=== PATIENT | female | born 1930 | race Caucasian/White ===

== ENCOUNTER 2016-11-27 21:46 | Emergency (ER) | payer MEDICARE, BC ==
[2016-11-27 20:18] LABS: URINE SOURCE CLEAN CATCH
[2016-11-27 20:25] LABS: BASOPHIL# 0.1 X10e3 (0-0.3); BASOPHIL% 1.2 % (0-2.5); EOSINOPHIL# 0.4 X10e3 (0-0.7); EOSINOPHIL% 3.6 % (0.0-7.0); HEMATOCRIT 36.1 % (35.0-45.0); HEMOGLOBIN 12.1 gm/dL (12.0-16.0); LYMPHOCYTE% 19.4 % (17.0-45.0); MEAN CELL VOLUME 93.3 FL (83-96); MEAN CORPUSCULAR HEMOGLOBIN 31.4 PG (28-34); MEAN CORPUSCULAR HGB CONC 33.7 g/dL (30-36); MEAN PLATELET VOLUME 8.6 FL (6.5-11.5); MONOCYTE# 1.1 X10e3 (0-1.0); MONOCYTE% 10.4 % (3.0-12.0); NEUTROPHIL# 6.7 X10e3 (1.5-7.1); NEUTROPHIL% 65.4 % (40-75); PLATELET COUNT 257 X10e3 (140-420); RED BLOOD COUNT 3.87 X10e (3.90-5.30); RED CELL DISTRIBUTION WIDTH 12.2 % (11.0-15.5); WHITE BLOOD COUNT 10.3 X10e3 (4.0-10.5)
[2016-11-27 20:25] LABS: URINE APPEARANCE CLEAR; URINE BILIRUBIN NEG (NEG); URINE BLOOD NEG (NEG); URINE COLOR YELLOW; URINE GLUCOSE NEG (NEG); URINE KETONE NEG (NEG); URINE LEUKOCYTE ESTERASE TRACE (NEG); URINE NITRATE NEG (NEG); URINE PH 5.5 (5-8); URINE PROTEIN NEG (NEG); URINE SPECIFIC GRAVITY 1.012 (1.003-1.035); URINE UROBILINOGEN 0.2 MG/DL (NEG)
[2016-11-27 20:26] LABS: DIFF IND NO
[2016-11-27 20:29] LABS: URBCS1 AUWI 0-2 /[HPF] (0-2); URINE BACTERIA AUWI NEG (NEGATIVE); URINE SQUAMOUS EPITHELIAL CELL NONE SEEN /[HPF]
[2016-11-27 20:53] LABS: ALBUMIN SERUM 4.2 g/dL (3.5-5.0); ALKALINE PHOSPHATASE 57 U/L (32-92); ALT (SGPT) 11 U/L (10-40); AMYLASE 33 U/L (0-46); AST (SGOT) 17 U/L (10-42); BILIRUBIN, DIRECT 0.1 mg/dL (0.0-0.2); BILIRUBIN,INDIRECT 0.6 mg/dL (0.0-0.9); BILIRUBIN,TOTAL 0.7 mg/dL (0.2-2.0); BLOOD UREA NITROGEN 18 mg/dL (9-23); CALCIUM SERUM 10.1 mg/dL (8.4-10.2); CARBON DIOXIDE 23 mmol/L (22-31); CHLORIDE 103 mmol/L (100-111); CREATININE SERUM 0.9 mg/dL (0.6-1.4); GLOM FILT RATE Estimated ABOVE60 mL/min (>60); GLUCOSE FASTING 121 mg/dL (70-110); LIPASE 30 U/L (22-51); POTASSIUM 4.1 mmol/L (3.5-5.1); PROTEIN TOTAL SERUM 7.8 g/dL (6.0-8.3); SODIUM 136 mmol/L (135-145)
[~2016-11-27 21:46] MED LIST: AMITRIPTYLINE H50 MG PO; AMLODIPINE BES2.5 MG PO; ASPIRIN EC81 M1 PO; ASPIRIN81 MG PO; ATORVASTATIN CA10 MG PO; CARAFATE1 G PO; CELEBREX PO; COLESTID PO; DARVOCET-N 1001 TAB PO; HYDROCHLOROTH12.5 M1 PO; HYDROCHLOROTH12.5 MG PO; HYDROCODON-ACE1 EAC1 PO; HYDROCODON-ACE1 EAC7 PO; LEVAQUIN PO; LIPITOR PO; LISINOPRIL2.5 MG PO; LOMOTIL WHITE2.5 M1 PO; LORTAB 10-5001 EACH PO; LORTAB 10/500 T1 TAB PO; METROGEL-VAGINA70 GM VG; OMEPRAZOLE40 M1 PO; ONDANSETRO4 MG/UDTAB PO; PRILOSEC40 MG PO; PRINIVIL10 MG PO; SEPTRA SUSPENS100 ML; TESSALON200 MG PO; TOPROL XL 50 MG50 MG PO; TOPROL XL PO; WATER PILL PO; ZITHROMAX PO; ZOFRAN ODT4 MG PO; [UNRECOGNIZED DRUG - OTHER]
[2017-05-12] MEDS ORDERED: ZESTRIL10 M1 PO (13:19)
[2017-05-12] MEDS ORDERED: OMEPRAZOLE40 M1 PO (13:20)
[2017-05-12] MEDS ORDERED: ATIVAN0.5 M1 PO (13:20)
== END 2016-11-27 21:50 | disposition home or self-care (01) ==
LOC: CFTX 21:46
PROVIDERS: Student in an Organized Health Care Education/Training Program
DX: R32 Unspecified urinary incontinence (principal); I10 Essential (primary) hypertension
CPT/HCPCS: 80048; 80076; 81003; 82150; 83690; 85025; 99283

== ENCOUNTER 2017-03-03 10:04 | Emergency (ER) | payer MEDICARE, BC ==
[2017-05-12] MEDS ORDERED: ZESTRIL10 M1 PO (13:19)
[2017-05-12] MEDS ORDERED: OMEPRAZOLE40 M1 PO (13:20)
[2017-05-12] MEDS ORDERED: ATIVAN0.5 M1 PO (13:20)
== END 2017-03-03 11:45 | disposition left against medical advice (07) ==
LOC: CED 10:04
DX: Z53.21 Procedure and treatment not carried out due to patient leaving prior to being seen by health care provider (principal)

== ENCOUNTER 2017-04-13 11:10 | Emergency (ER) | payer MEDICARE, BC ==
--- NOTE | ~2017-04-13 | CT2 ---
[facility] A Service of [facility] [place] RADIOLOGY TEXT RESULTS PATIENT: PERLA HYLTON LOCATION: [facility] : 34 UNIT #: [id number] AGE: [address]: Lionel Gusman MD SEX: F ORDER DR: [id number] [facility] [address] [facility]. [place], [place] [address] [id number] MR#: [id number] Acc #: [id number] NAME: PERLA HYLTON. : 1930 SEX: F STUDY DATE/TIME: 04/13/2017 14:38 UNIT: [facility] ROOM: STUDY DESCRIPTION: CT Abd and Pelv W Cont Attending Physician: Hernandez Gusman M.D. Ordering Physician: [facility] Primary Care Physician: Gilson Murguia Jr., M.D. MEDICAL IMAGING REPORT This report is preliminary unless electronic signature is present EXAM CT of the abdomen and pelvis with contrast INDICATIONS Left upper abdominal pain, nausea, vomiting, diarrhea for [address] of the abdomen and pelvis was performed following the administration of oral and IV contrast. Coronal and sagittal reformatted images were obtained. This CT exam was performed with one or more of the following radiation dose reduction techniques: automatic exposure control, adjustment of mA and/or kV according to patient size, and iterative reconstruction. COMPARISON STUDIES Comparison is made with 01/14/2014 FINDINGS Stable scarring in the lung bases. Tiny hiatal hernia. The liver is unremarkable. Cholecystectomy. The spleen is unremarkable. The kidneys are unremarkable. The adrenal glands are unremarkable. Pancreas is unremarkable. PELVIS: Diverticulosis of the colon. No evidence for diverticulitis. The appendix is normal. The remainder of the pelvis is unremarkable. Bone windows show postoperative changes of the left hip. Osteopenia. Degenerative changes lumbar spine. IMPRESSION 1. Cholecystectomy 2. Tiny hiatal hernia. 3. Diverticulosis without evidence for diverticulitis. [facility] A Service of [facility] [place] RADIOLOGY TEXT RESULTS PATIENT: PERLA HYLTON LOCATION: [facility] : 34 UNIT #: [id number] AGE: [address]: Lionel Gusman MD SEX: F ORDER DR: Dictated by... Kee Casas M.D. THIS IS AN ELECTRONICALLY VERIFIED REPORT Kee Casas M.D. at 04/13/2017 5:06 PM Jian TD: 04/13/2017 16:21 JOB #: [id number] MEDICAL IMAGING REPORT Page 1 of 1 COPY
[2017-04-13 12:10] LABS: BASOPHIL# 0.1 X10e3 (0-0.3); BASOPHIL% 0.7 % (0-2.5); EOSINOPHIL# 0.2 X10e3 (0-0.7); HEMATOCRIT 35.9 % (35.0-45.0); HEMOGLOBIN 12.3 gm/dL (12.0-16.0); LYMPHOCYTE# 2.2 X10e3 (1.0-3.5); LYMPHOCYTE% 26.8 % (17.0-45.0); MEAN CORPUSCULAR HEMOGLOBIN 31.8 PG (28-34); MEAN CORPUSCULAR HGB CONC 34.2 g/dL (30-36); MEAN PLATELET VOLUME 8.4 FL (6.5-11.5); MONOCYTE# 0.8 X10e3 (0-1.0); MONOCYTE% 9.7 % (3.0-12.0); NEUTROPHIL% 60.8 % (40-75); PLATELET COUNT 212 X10e3 (140-420); RED BLOOD COUNT 3.86 X10e (3.90-5.30); RED CELL DISTRIBUTION WIDTH 12.7 % (11.0-15.5); WHITE BLOOD COUNT 8.3 X10e3 (4.0-10.5)
[2017-04-13 12:17] LABS: DIFF IND NO
[2017-04-13 12:39] LABS: BILIRUBIN, DIRECT 0.1 mg/dL (0.0-0.2); BILIRUBIN,INDIRECT 0.2 mg/dL (0.0-0.9); BILIRUBIN,TOTAL 0.3 mg/dL (0.2-2.0); BUN/CREATININE RATIO 17.77; CALCIUM SERUM 9.6 mg/dL (8.4-10.2); CREATININE SERUM 0.9 mg/dL (0.6-1.4); GLOM FILT RATE Estimated 58.8 mL/min (>60); POTASSIUM 3.5 mmol/L (3.5-5.1); PROTEIN TOTAL SERUM 7.6 g/dL (6.0-8.3)
[2017-04-13 13:04] LABS: URINE SOURCE CLEAN CATCH
[2017-04-13 13:19] LABS: URINE APPEARANCE CLEAR; URINE BLOOD NEG (NEG); URINE COLOR DK YELLOW; URINE GLUCOSE NEG (NEG); URINE KETONE NEG (NEG); URINE LEUKOCYTE ESTERASE 1+ (NEG); URINE NITRATE POS (NEG); URINE PROTEIN TRACE (NEG); URINE SPECIFIC GRAVITY 1.021 (1.003-1.035)
[2017-04-13 13:22] LABS: URBCS1 AUWI 0-2 /[HPF] (0-2); URINE BACTERIA AUWI NEG (NEGATIVE); URINE SQUAMOUS EPITHELIAL CELL OCC /[HPF]
[2017-04-13 13:27] LABS: CULTURE INDICATED? NO; URINE BILIRUBIN NEG (NEG)
[2017-05-12] MEDS ORDERED: ZESTRIL10 M1 PO (13:19)
[2017-05-12] MEDS ORDERED: OMEPRAZOLE40 M1 PO (13:20)
[2017-05-12] MEDS ORDERED: ATIVAN0.5 M1 PO (13:20)
== END 2017-04-13 15:50 | disposition home or self-care (01) ==
LOC: CED 11:10
PROVIDERS: Emergency Medicine
DX: R10.84 Generalized abdominal pain (principal); R11.0 Nausea; K21.9 Gastro-esophageal reflux disease without esophagitis; Z90.49 Acquired absence of other specified parts of digestive tract; Z85.3 Personal history of malignant neoplasm of breast; Z96.642 Presence of left artificial hip joint; Z98.890 Other specified postprocedural states
CPT/HCPCS: 36415; 74177; 80048; 80076; 81003; 83690; 85025; 96361; 96374; 96375; 99284; J2405; Q9967

== ENCOUNTER → 2017-05-12 | Day surgery (SDC) | payer MEDICARE, BC ==
[~2017-05-12] MED LIST changes: +ATIVAN0.5 M1 PO; +ZESTRIL10 M1 PO
--- NOTE | ~2017-05-12 | OR ---
Unit #: [id number] #: [id number] Patient: PERLA HYLTON [id number] [address] [address] [id number] O MR#: [id number] NAME: PERLA HYLTON ROOM: Date of Procedure: 05/12/2017 Admission Date: 05/12/2017 Surgeon: Talha Lyman M.D. : 1930 Attending Physician: Talha Lyman M.D. Primary Care Physician: Gilson Murguia Jr., M.D. OPERATIVE REPORT ADDITIONAL ATTENDING PHYSICIAN Gilson Murguia M.D. PREOPERATIVE DIAGNOSES Gastroesophageal reflux and dyspepsia. PROCEDURES PERFORMED 1. Upper gastrointestinal endoscopy and biopsy. 2. Upper gastrointestinal endoscopy and dilation. POSTOPERATIVE DIAGNOSES For upper endoscopy: 1. The patient had distal esophageal benign stricture. In fact, there were 2 or 3 strictures in the distal esophagus with classic benign appearance. These were clearly obstructing and were dilated using an 18 to 20 mm TTS balloon up to 19 mm. 2. Small medium-sized hiatus hernia. 3. Diffuse pre-pyloric antral moderate erosive gastritis. This was in the form of linear erosions, radiating folds in the antrum area. 4. Rest of the examination up to third part of duodenum was normal. Biopsy was obtained from the antrum for CLOtest. In addition, the distal esophageal strictures were dilated using a TTS balloon. RECOMMENDATIONS The patient is advised to increase the dose of omeprazole to 40 mg p.o. b.i.d. She will be followed up in the office in 6 to 8 weeks' time. At that time, decision will be made whether to reduce the dose to once a day again. SEDATION USED MAC. DESCRIPTION OF PROCEDURE Following detailed explanation of potential risks and complications of an upper endoscopy, namely perforation, bleeding, and complications related to sedation, the patient was brought to GI lab and laid in the left lateral decubitus position. Lubricated tip of the Olympus video upper endoscope was passed through the bite block into the proximal esophagus under direct vision. Entire esophageal mucosa was examined. The patient was noted to have distal esophageal benign stricture with a classic appearance, it was clearly obstructing. Therefore in fact, two strictures one above the other in the distal esophagus. In addition, a medium-sized Unit #: [id number] #: [id number] Patient: PERLA HYLTON hiatus hernia was noted. The scope was then advanced into the gastric cavity and the latter was insufflated. Mucosa of the fundus, body, and antrum was examined and moderate diffuse prepyloric antral erosive gastritis noted. Pylorus was intubated with visualization of the normal duodenal bulb and second and third part of the duodenum. Upon withdrawal and retroflexion; incisura, cardia, and greater curve was examined and a biopsy was obtained from the antrum for CLOtest. The scope was withdrawn in the distal esophagus. An 18 to 20 mm TTS balloon was passed through the accessory channel of the scope and step-up dilation of the distal esophageal stricture was done up to 19 mm. Minimal bleeding was noted. The area was thoroughly washed with water and good hemostasis was achieved. The scope was then withdrawn all the way up to pharynx. No additional findings were noted. The patient tolerated the procedure without any postprocedure complications. Dictated by... Genny Mckeon/souleymane TD: 05/12/2017 16:00 JOB #: [id number] CC: Laz Schreiber M.D. OPERATIVE REPORT Page 1 of 1 X Talha Lyman MD X PROCEDURE OPERATIVE NOTE
== END | disposition home or self-care (01) ==
LOC: COPS 11:40
DX: K22.2 Esophageal obstruction (principal); K44.9 Diaphragmatic hernia without obstruction or gangrene; K25.9 Gastric ulcer, unspecified as acute or chronic, without hemorrhage or perforation; K21.9 Gastro-esophageal reflux disease without esophagitis; M19.90 Unspecified osteoarthritis, unspecified site; I10 Essential (primary) hypertension; Z90.49 Acquired absence of other specified parts of digestive tract; Z96.642 Presence of left artificial hip joint; Z90.11 Acquired absence of right breast and nipple; Z79.899 Other long term (current) drug therapy
CPT/HCPCS: 87077